=== PATIENT | female | born 1975 | race Caucasian/White ===

== ENCOUNTER 2020-02-07 11:06 | Day surgery (SDC) | payer MEDICAID ==
[~2020-02-07] VITALS: Ht 152.4 cm; Wt 58.1 kg
[2020-02-07 11:30] VITALS: BP 134/76
[2020-02-07] MEDS ORDERED: ASPI-1071 PO (12:26)
[2020-02-07] MEDS ORDERED: FLUO-167 PO (12:26)
[2020-02-07] MEDS ORDERED: INSU100V9 SQ (12:26)
[2020-02-07] MEDS ORDERED: GABA-530 PO (12:26)
[2020-02-07] MEDS ORDERED: AMIT25TA9 PO (12:26)
[2020-02-07] MEDS ORDERED: ARIP5TAB14 PO (12:26)
[2020-02-07] MEDS ORDERED: SIMV-42 PO (12:26)
[2020-02-07] MEDS ORDERED: POLY500P23 PO (12:26)
[2020-02-07] MEDS ORDERED: METO-384 PO (12:26)
[2020-02-07] MEDS ORDERED: HYDR-3686 PO (12:26)
[2020-02-07] MEDS ORDERED: CALC667T6 PO (12:26)
[2020-02-07 13:10] VITALS: BP 135/77
[2020-02-07 13:15] VITALS: BP 155/71
[2020-02-07 13:30] VITALS: BP 149/69
== END 2020-02-07 13:35 | disposition home or self-care (01) ==
LOC: SSTAY O 11:06
PROVIDERS: ATTEND Radiology Diagnostic Radiology
DX: Z45.2 Encounter for adjustment and management of vascular access device (principal); E11.22 Type 2 diabetes mellitus with diabetic chronic kidney disease; I12.0 Hypertensive chronic kidney disease with stage 5 chronic kidney disease or end stage renal disease; N18.6 End stage renal disease; Z88.2 Allergy status to sulfonamides; Z79.899 Other long term (current) drug therapy; Z79.4 Long term (current) use of insulin
CPT/HCPCS: 36589